=== PATIENT | male | born 1985 | race Caucasian/White ===

== ENCOUNTER → 2020-09-03 09:02 | Outpatient (BNVA) | payer BC, SELFPAY | PROVIDERS: Family Provider Nurse Practitioner; PCP Nurse Practitioner; Visit Provider Nurse Practitioner Family | DX: Z20.828 Contact with and (suspected) exposure to other viral communicable diseases (principal) | CPT/HCPCS: 87635 ==

== ENCOUNTER → 2022-07-04 06:48 | Outpatient (BNVA) | payer BC, SELFPAY | PROVIDERS: Family Provider Nurse Practitioner; PCP Nurse Practitioner; Visit Provider Student in an Organized Health Care Education/Training Program | DX: M67.432 Ganglion, left wrist (principal) | CPT/HCPCS: 73130 ==

== ENCOUNTER 2023-04-13 00:33 | Emergency (ER) | payer OTHER, SELFPAY ==
[2023-04-13 01:21] VITALS: BP 171/97; PULSE 109; RESP 17; TEMP 36.9; O2SAT 98; BMI 34.0
--- NOTE | 2023-04-13 01:26 | W.ED.GENADLT ---
HPI - General Adult General: Chief complaint: General Medical Stated complaint: fournier to bilateral arms Time Seen by Provider: 04/13/23 00:51 History of Present Illness: Patient is a 38-year-old male who comes to the ED with chemical irritant to bilateral forearms. 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 He immediately started feeling a burning sensation to his skin. He removed gloves and did extensive rinsing of arms and even put some chemical wash on arms as well to treat the MEK. He states that initially he had redness on his forearms with little bumps. Patient states that he applied some cortisone cream on forearms bilaterally before coming to the ED. The rash has completely resolved and he denies any burning type pain or blisters. He states that he still has a little bit of tingling sensation on the skin of his forearms bilaterally. Denies any other exposures or symptoms. Denies any trouble breathing, lip or tongue swelling. Patient is not up-to-date on his tetanus. Associated symptoms: Reports rash (Chemical irritant to bilateral forearms); Deny chest pain, dyspnea, headache(s), nausea, palpitations or vomiting Review of Systems Const: Denies: fever(s), chills or fatigue Eyes: Denies: change in vision or eye discomfort ENMT: Denies: throat pain, odynophagia, nasal discharge or nasal congestion Card: Denies: chest pain, palpitations, edema, swelling of feet/ankles, dyspnea on exertion or orthopnea Resp: Denies: dyspnea, productive cough or non-productive cough GI: Denies: abdominal pain, nausea, vomiting, diarrhea, constipation or hematochezia : Denies: flank pain, difficulty urinating, dysuria or hematuria Musc: Denies: neck pain, back pain or extremity swelling Skin/Breast: Reports: rash (Chemical irritant to bilateral forearms); Denies: new lesions Neuro: Denies: headache(s), numbness in extremities or weakness in extremities [facility] ED PFSH: Medical History (Updated 04/13/23 @ 02:09 by KATTY Leiva) Ganglion cyst of volar aspect of left wrist No pertinent family history Physical Exam Const: COMMON NORMALS: no acute distress, patient oriented x3, healthy appearing and alert HENMT: COMMON NORMALS: normocephalic HEAD & SCALP: normocephalic MOUTH: Normal oral and palatal mucosa present THROAT: posterior oropharynx normal and uvula midline Neck/C-Spine: COMMON NORMALS: supple GENERAL: Yes normal visual inspection Resp: COMMON NORMALS: normal respiratory effort, No retractions, No use of accessory muscles and clear to auscultation bilaterally AUSCULTATION: clear to auscultation bilaterally Cardio: COMMON NORMALS: regular rate, regular rhythm, S1 normal heart sound present, S2 normal heart sound present, No gallops present (Cardio), No clicks present (Cardio), No murmurs present (Cardio) and Peripheral pulses 2+ throughout RATE: regular rate RHYTHM: regular rhythm HEART SOUNDS: S1 normal heart sound present and S2 normal heart sound present PERIPHERAL PULSES: Peripheral pulses 2+ throughout GI: COMMON NORMALS: Normal to inspection, nondistended, normoactive bowel sounds present, Soft to palpation, non-tender and no masses PALPATION: Yes Soft to palpation : COMMON NORMALS: Yes no CVA tenderness BLADDER/KIDNEY EXAM: Yes no CVA tenderness Back/Pelvis: COMMON NORMALS: no CVA tenderness Extremity: NARRATIVE EXTREMITY EXAM: Bilateral forearms?no erythema, warmth or blistering noted. Exam is unremarkable. Neuro: COMMON NORMALS: patient oriented x3 SENSORIUM/ORIENTATION: Yes alert GAIT: Yes Normal gait present Skin: GENERAL SKIN EXAM: dry skin Course Vital Signs: Vital signs: Vital Signs Temperature 98.4 F 04/13/23 01:21 Pulse Rate 109 H 04/13/23 01:21 Respiratory Rate 17 04/13/23 01:21 Blood Pressure 171/97 04/13/23 01:21 Pulse Oximetry 98 04/13/23 01:21 Oxygen Delivery Me thod Room Air 04/13/23 01:21 [facility] - General Adult Medical Decision Making Patient is a 38-year-old male who comes to the ED with chemical irritant to bilateral forearms. 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 He immediately started feeling a burning sensation to his skin. He removed gloves and did extensive rinsing of arms and even put some chemical wash on arms as well to treat the MEK. He states that initially he had redness on his forearms with little bumps. Patient states that he applied some cortisone cream on forearms bilaterally before coming to the ED. The rash has completely resolved and he denies any burning type pain or blisters. He states that he still has a little bit of tingling sensation on the skin of his forearms bilaterally. Denies any other exposures or symptoms. Denies any trouble breathing, lip or tongue swelling. Patient is not up-to-date on his tetanus. Vitals are stable. Patient appears nontoxic in no acute distress or pain. Exam of patient is benign and no erythema warmth or blistering seen on bilateral forearms. He was given updated tetanus here in the ED and diagnosed with irritant contact dermatitis due to chemical. Told to follow-up with his PCP within the next week for reevaluation. Return to ED precautions given. Patient understood and agreed with plan. Discharge Plan Discharge Patient Disposition: Home Clinical Impression: Irritant contact dermatitis due to chemical Condition: Stable Prescriptions: No Action No Known Home Medications Discharge Orders: Discharge ED (Routine); Ordered 04/13/23 Ordered By: Nima Singer Referrals: Poly Vail FNP [Primary Care Provider] - Discharge Diet: Regular Discharge Activity: Increase activity as tolerated Activity Restrictions/Additional Instructions: Follow-up with medical provider as directed in the next 3 to 5 days for reevaluation. Return to the ER or your medical provider if condition worsens. Please read and understand discharge instructions. Thank you for choosing [facility] for your healthcare needs today. Please realize this is an emergency room and that we are providing you with a medical screening exam and this may not be complete and all inclusive of all the testing and or work up that you may need to determine your ailment or severity of your illness. It is very important that you follow up as instructed or that you return to the Emergency Department should you have concerns or if your condition changes or worsens in any way. Coding Level of Care Code ED Facility Administrator for Lalo Banks
[2023-04-13] MEDS: tetanus-dipt-pertussis 0.5 mL SDV IM (01:44)
== END 2023-04-13 02:01 | disposition home or self-care (01) ==
PROVIDERS: Emergency Provider Physician Assistant; PCP Nurse Practitioner
DX: L24.5 Irritant contact dermatitis due to other chemical products (principal)
CPT/HCPCS: 90715; 99283